=== PATIENT | female | born 1950 | race Caucasian/White ===

== ENCOUNTER → 2016-08-02 | Outpatient (CLI) | payer MEDICARE ==
[~2016-08-02] MED LIST: HYDROCODONE BIT1 T11 PO; MOTRIN800 MG PO; NORFLEX100 MG PO
== END ==
LOC: LAB 09:41
DX: E87.5 Hyperkalemia (principal)

== ENCOUNTER 2016-11-15 13:33 | Emergency (ER) | payer MEDICARE ==
[~2016-11-15] VITALS: Ht 167.6 cm; Wt 49.4 kg
[2016-11-15] MEDS ORDERED: LEXAPRO10 MG PO (13:57)
== END 2016-11-15 16:44 | disposition home or self-care (01) ==
LOC: ED 13:33
DX: S93.602A Unspecified sprain of left foot, initial encounter (principal); F17.200 Nicotine dependence, unspecified, uncomplicated; Z79.899 Other long term (current) drug therapy; X58.XXXA Exposure to other specified factors, initial encounter; Y93.9 Activity, unspecified; Y92.9 Unspecified place or not applicable; Y99.9 Unspecified external cause status

== ENCOUNTER → 2017-02-12 | Outpatient (CLI) | payer MEDICARE ==
[~2017-02-12] MED LIST changes: +LEXAPRO10 MG PO
== END | disposition home or self-care (01) ==
LOC: RAD 12:39
DX: J43.9 Emphysema, unspecified (principal); M54.5 Low back pain; R31.9 Hematuria, unspecified; R10.9 Unspecified abdominal pain; R82.99 Other abnormal findings in urine

== ENCOUNTER → 2018-02-13 | Outpatient (CLI) | payer MEDICARE | END | disposition home or self-care (01) | LOC: RAD 10:11 | DX: I50.9 Heart failure, unspecified (principal); R06.02 Shortness of breath; R05 Cough; F17.200 Nicotine dependence, unspecified, uncomplicated ==

== ENCOUNTER → 2018-02-19 | Outpatient (CLI) | payer MEDICARE | END | disposition home or self-care (01) | LOC: CT 08:41 | DX: J43.9 Emphysema, unspecified (principal); I25.10 Atherosclerotic heart disease of native coronary artery without angina pectoris; J84.10 Pulmonary fibrosis, unspecified; J45.909 Unspecified asthma, uncomplicated; F17.200 Nicotine dependence, unspecified, uncomplicated ==

== ENCOUNTER → 2018-10-14 | Outpatient (CLI) | payer MEDICARE | END | disposition home or self-care (01) | LOC: CT 00:59 | DX: I25.10 Atherosclerotic heart disease of native coronary artery without angina pectoris (principal); R91.1 Solitary pulmonary nodule; F17.200 Nicotine dependence, unspecified, uncomplicated ==

== ENCOUNTER → 2019-06-19 | Outpatient (CLI) | payer MEDICARE, OTHER | END | disposition home or self-care (01) | LOC: RAD 14:09 | DX: J18.0 Bronchopneumonia, unspecified organism (principal); R06.02 Shortness of breath; J18.9 Pneumonia, unspecified organism; J90 Pleural effusion, not elsewhere classified ==

== ENCOUNTER 2019-07-14 16:57 | Inpatient (IN) | payer MEDICARE, OTHER ==
[2019-07-14] VITALS (8 sets, daily range): BP systolic 129–170; BP diastolic 48–89
[~2019-07-14] VITALS: Ht 165 cm; Wt 44.3 kg
[2019-07-14 17:29] LABS: BASO % 0.2 % (0.0-1.0); EOS # 0.1 10*3/uL (0.0-0.4); EOS % 0.7 % (1.0-4.0); HEMATOCRIT 29.3 % (37.0-47.0); HEMOGLOBIN 9.2 g/dl (12.0-16.0); LYMPH # 0.9 10*3/uL (1.3-4.4); LYMPH % 10.5 % (27.0-41.0); MEAN CELL VOLUME 98.3 fl (81.0-99.0); MEAN CORPUSCULAR HGB 30.9 pg (27.0-31.0); MEAN CORPUSCULAR HGB CONC 31.4 g/dl (33.0-37.0); MEAN PLATELET VOLUME 10.4 fl (9.6-12.3); MONO # 0.8 10*3/uL (0.1-1.0); MONO % 9.5 % (3.0-9.0); NEUT % 78.6 % (47.0-73.0); PLATELET COUNT AUTOMATED 243 10*3/uL (130-400); RED BLOOD COUNT 2.98 10*6/uL (4.10-5.10); RED CELL DISTRI WIDTH 13.8 % (0-14.5); WHITE BLOOD COUNT 8.9 10*3/uL (4.8-10.8)
[2019-07-14 17:42] LABS: ACT PARTIAL THROMBO TIME 34.2 SECONDS (20.0-32.1)
[2019-07-14 17:52] LABS: ALBUMIN 2.8 gm/dl (3.1-4.5); ALKALINE PHOSPHATASE 92 U/L (45-117); BUN 13 mg/dl (7-24); CHLORIDE 105 mmol/L (98-107); CREATININE 0.91 mg/dL (0.55-1.02); POTASSIUM 4.2 mmol/L (3.5-5.1); SGOT/AST 14 IU/L (3-35); SGPT/ALT 11 U/L (12-78); SODIUM 136 mmol/L (136-145); TOTAL PROTEIN 7.2 gm/dL (6.4-8.2)
[2019-07-14 17:53] LABS: TROPONIN I < 0.015 ng/ml (<0.045)
--- NOTE | 2019-07-14 23:30 | NUR ---
Time: 2329 A 69 year old F admitted to 5E under services of BRITNEY FRAZIER DO. Pt. arrived via wheel chair from ER. Chief complaint: SOB AND CHETS PAIN X 3-4 DAYS. CRIS GREGG
--- NOTE | 2019-07-15 00:20 | NUR ---
MEDICATED WITH NORCO PER PRN ORDER FOR COMPLAINTS OF BACK PAIN RATING A 6. CALL LIGHT WITHIN REACH. WILL MONITOR FOR EFFECTIVENESS
--- NOTE | 2019-07-15 02:00 | NUR ---
MEDS APPEAR EFFECTIVE. SLEEPING. RESPIRATIONS EASY. CALL LIGHT WITHIN REACH
[2019-07-15] MEDS ORDERED: BUSPAR5 MG PO (02:38)
[2019-07-15] MEDS ORDERED: TRELEGY ELLIPT1 EACH INH (02:39)
[2019-07-15] MEDS ORDERED: BUPROPION ER100 M1 PO (02:39)
[2019-07-15] MEDS ORDERED: VITAMIN D350 MC1 PO (02:40)
[2019-07-15] MEDS ORDERED: ONDANSETRON HYDR8 MG PO (02:40)
[2019-07-15] MEDS ORDERED: CALCIUM CARBON600 M4 PO (02:41)
[2019-07-15] MEDS ORDERED: PROVENTIL HFA6.7 GM INH (02:43)
[2019-07-15] MEDS ORDERED: ALBUTEROL2.5 MG/0.5 INH (02:44)
[2019-07-15 06:17] LABS: BASO % 0.4 % (0.0-1.0); EOS # 0.1 10*3/uL (0.0-0.4); EOS % 1.6 % (1.0-4.0); HEMATOCRIT 31.3 % (37.0-47.0); HEMOGLOBIN 9.8 g/dl (12.0-16.0); LYMPH # 0.6 10*3/uL (1.3-4.4); MEAN CELL VOLUME 98.7 fl (81.0-99.0); MEAN CORPUSCULAR HGB 30.9 pg (27.0-31.0); MEAN CORPUSCULAR HGB CONC 31.3 g/dl (33.0-37.0); MEAN PLATELET VOLUME 10.6 fl (9.6-12.3); MONO # 0.6 10*3/uL (0.1-1.0); MONO % 11.4 % (3.0-9.0); NEUT # 4.2 10*3/uL (2.3-7.9); NEUT % 76.2 % (47.0-73.0); PLATELET COUNT AUTOMATED 216 10*3/uL (130-400); RED BLOOD COUNT 3.17 10*6/uL (4.10-5.10); RED CELL DISTRI WIDTH 13.9 % (0-14.5); WHITE BLOOD COUNT 5.5 10*3/uL (4.8-10.8)
[2019-07-15 06:21] LABS: BUN 11 mg/dl (7-24); CHLORIDE 109 mmol/L (98-107); CREATININE 0.85 mg/dL (0.55-1.02); POTASSIUM 3.8 mmol/L (3.5-5.1); SODIUM 139 mmol/L (136-145)
--- NOTE | 2019-07-15 06:35 | NUR ---
DR ARREDONDO CONTACTED AND INFORMED [facility] REC UP TO DATE
--- NOTE | 2019-07-15 06:40 | NUR ---
CONSULT CALLED TO INFECTIOUS DISEASE ANSWERING SERVICE. AWAITING RETURN CALL
--- NOTE | 2019-07-15 07:10 | NUR ---
DR HAILE CALLED IN REGARDING CONSULT. LABS REVIEWED. WILL SEE PATIENT
[2019-07-15 08:00] VITALS: BP 113/67
--- NOTE | 2019-07-15 09:00 | NUR ---
Pastry Assistant in to talk to patient. Patient states lives at home with family. There are no steps in the home. Physician: kelsi alvarado [facility]: [facility] Home health services: none Patient's level of ADLs: MINIMAL ASSIST Patient has working utilities: all working DME: home oxygen Follow-up physician's appointment after d/c: will be made by hospitalist nurse director upon discharge Does patient want to access PORTAL?: no Discharge plan discussed with patient by phone, she lives at home, is independent in adls she states she will be returning home and at this time declines any home needs, case management will follow. CAROLANN HUDSON
--- NOTE | 2019-07-15 09:20 | NUR ---
PT RESTING IN BED. RESP-EASY AND REGULAR. NO SOB NOTED. NO C/O AT THIS TIME. PT REFUSED LOVENOX INJECTION, EDUCATED HER ON IMPORTANCE. PT STATES SHE IS MOBILE. CALL LIGHT IN REACH. SEE SHIFT ASSESSMENT.
[2019-07-15 16:00] VITALS: BP 108/58
--- NOTE | 2019-07-15 16:18 | NUR ---
CALLED DR. FOSTER MADE AWARE OF CONSULT. HE WILL SEE PT TOMORROW.
[2019-07-15 20:00] VITALS: BP 104/62
--- NOTE | 2019-07-15 22:53 | NUR ---
PATIENT MEDICATED WITH NORCO FOR C/O 7/10 RIB PAIN. WILL MONITOR
[2019-07-16] VITALS: BP 99/64
[2019-07-16 06:01] LABS: BASO % 0.5 % (0.0-1.0); EOS # 0.1 10*3/uL (0.0-0.4); EOS % 2.1 % (1.0-4.0); HEMATOCRIT 30.8 % (37.0-47.0); HEMOGLOBIN 9.7 g/dl (12.0-16.0); LYMPH % 14.8 % (27.0-41.0); MEAN CORPUSCULAR HGB 31.2 pg (27.0-31.0); MEAN CORPUSCULAR HGB CONC 31.5 g/dl (33.0-37.0); MEAN PLATELET VOLUME 10.5 fl (9.6-12.3); MONO # 0.9 10*3/uL (0.1-1.0); MONO % 13.3 % (3.0-9.0); NEUT # 4.5 10*3/uL (2.3-7.9); PLATELET COUNT AUTOMATED 225 10*3/uL (130-400); RED BLOOD COUNT 3.11 10*6/uL (4.10-5.10); RED CELL DISTRI WIDTH 13.9 % (0-14.5); WHITE BLOOD COUNT 6.6 10*3/uL (4.8-10.8)
[2019-07-16 06:25] LABS: ALBUMIN 2.7 gm/dl (3.1-4.5); ALKALINE PHOSPHATASE 89 U/L (45-117); BUN 13 mg/dl (7-24); CHLORIDE 108 mmol/L (98-107); CREATININE 0.98 mg/dL (0.55-1.02); PHOSPHOROUS 4.1 mg/dL (2.5-4.9); POTASSIUM 4.5 mmol/L (3.5-5.1); SGOT/AST 11 IU/L (3-35); SGPT/ALT 9 U/L (12-78); SODIUM 139 mmol/L (136-145); TOTAL PROTEIN 7.1 gm/dL (6.4-8.2)
--- NOTE | 2019-07-16 07:30 | NUR ---
PT RESTING IN BED. VOICES NO CONCERNS AT THIS TIME. RESPS EASY AND NON LABORED. NO S/S OF DISTRESS NOTED. VSS. WHITE BOARD UPDATED. CALL LIGHT WITHIN REACH.
[2019-07-16 08:00] VITALS: BP 110/64
--- NOTE | 2019-07-16 08:57 | NUR ---
Shift chart check completed.
--- NOTE | 2019-07-16 09:06 | NUR ---
PT UP TO CHAIR TO EAT BREAKFAST
--- NOTE | 2019-07-16 10:44 | NUR ---
PT INSTRUCTED ON INHALER USE, TEACH BACK METHOD UTILIZED
[2019-07-16 12:00] VITALS: BP 97/53
[2019-07-16] MEDS ORDERED: OMNICEF300 MG PO (15:25)
[2019-07-16] MEDS ORDERED: ZITHROMAX250 MG PO (15:25)
--- NOTE | 2019-07-16 16:00 | NUR ---
Discharge instructions reviewed with patient/family. Patient receptive and verbalizes understanding. Follow-up care arranged. Written instructions given to patient/family. HISSOM,BERNARDO The Discharge Plan/Instructions have been completed.
== END 2019-07-16 16:16 | disposition home or self-care (01) | DRG 193 ==
LOC: ED 16:57 → 5E 22:14 → EDHOLD 22:14 → 5E 23:04
PROVIDERS: Family Medicine; Internal Medicine; ADMIT Internal Medicine
DX: J18.9 Pneumonia, unspecified organism (principal); E43 Unspecified severe protein-calorie malnutrition; C34.92 Malignant neoplasm of unspecified part of left bronchus or lung; J91.8 Pleural effusion in other conditions classified elsewhere; J96.11 Chronic respiratory failure with hypoxia; Z68.1 Body mass index [BMI] 19.9 or less, adult; J43.2 Centrilobular emphysema; G35 Multiple sclerosis; F17.218 Nicotine dependence, cigarettes, with other nicotine-induced disorders; Z20.828 Contact with and (suspected) exposure to other viral communicable diseases; M81.0 Age-related osteoporosis without current pathological fracture; E83.41 Hypermagnesemia; D64.9 Anemia, unspecified; Z71.6 Tobacco abuse counseling; S22.080D Wedge compression fracture of T11-T12 vertebra, subsequent encounter for fracture with routine healing; S32.010D Wedge compression fracture of first lumbar vertebra, subsequent encounter for fracture with routine healing